=== PATIENT | male | born 1940 | race Caucasian/White ===

== ENCOUNTER 2024-09-11 14:33 | Emergency (ER) | payer MEDICARE, OTHER, SELFPAY ==
[2024-09-11 14:34] VITALS: BMI 33.6
[2024-09-11 14:42] VITALS: BP 162/84; PULSE 73; RESP 18; TEMP 36.6; O2SAT 98
[2024-09-11] MEDS: TETRACAINE PF OP SOL 0.5% 4 ML DRPETTE 1 DROP LEFT EYE (14:56)
[2024-09-11] MEDS: FLUORESCEIN SOD 1 MG STRP LEFT EYE (14:57)
--- NOTE | 2024-09-11 15:30 | EDNOTE_ITS ---
<Statement entered by Nhi Irizarry MD - 09/13/24 12:05> As co-signing physician, I was present and available for consult prn. I concur with the plan and care as documented by the midlevel provider. ED Eye Problem RME/HPI General Chief complaint: Eye Problems Stated complaint: something in eye while sandblasting Time Seen by Provider: 09/11/24 14:46 Arrival date/time: 09/11/24 14:33 84-year-old male presents to the Emergency Department today stating that he got something in his eye while sandblasting patient reports no disturbances in vision Limitations: no limitations Related Data Home Medications ?Medication ?Instructions ?Recorded ?Confirmed diclofenac sodium 50 mg 50 mg PO TIDWM ##0 09/19/14 02/20/22 tablet,delayed release lansoprazole 15 mg capsule,delayed 15 mg PO HS ##0 02/20/22 release (Prevacid) aspirin 81 mg tablet 81 mg PO QDAY 01/09/2102/20 pravastatin 10 mg tablet 10 mg PO QDAY 01/09/2102/20 tamsulosin 0.4 mg capsule 0.8 mg PO QHS 07/19/2102/20 Previous Rx's ?Medication ?Instructions ?Recorded tobramycin 0.3 %-dexamethasone 0.1 2 drp ophthalmic (e ye) QID 7 days 09/11/24 % eye drops,suspension (TobraDex) #10 mL Allergies Allergy/AdvReac Type Severity Reaction Status Date / Time No Known Drug Allergies Allergy Verified 02/20/22 08:05 Review of Systems Review of Systems Systems Reviewed: All systems reviewed, normal except as documented Constitutional Constitutional: Reports system reviewed and no additional complaints, except as documented, Denies fever(s) and Denies headache(s) Eyes Eyes: Reports system reviewed and no additional complaints, except as documented, Denies blurry vision and Reports other (Current abrasion left eye) ENT Ears, Nose, Mouth, and Throat: Reports system reviewed and no additional complaints, except as documented, Denies headache(s), Denies nasal congestion and Denies nasal discharge Cardiovascular Cardiovascular: Reports system reviewed and no additional complaints, except as documented, Denies chest pain and Denies dyspnea Respiratory Respiratory: Reports system reviewed and no additional complaints, except as documented, Denies chest congestion, Denies cough and Denies dyspnea Gastrointestinal Gastrointestinal: Reports system reviewed and no additional complaints, except as documented and Denies abdominal pain Integumentary/Breasts Skin/Breast: Reports system reviewed and no additional complaints, except as documented and Denies rash Neurologic Neurologic: Reports system reviewed and no additional complaints, except as documented, Reports as per HPI and Denies headache(s) Past Medical History Past Medical History NEUROLOGIC: Negative Cerebrovascular Accident, Transient Ischemic Attacks (TIA), Seizures or Migraine CARDIAC: Positive Cardiac Disorders, Hypercholesterolemia and Hypertension; Negative Congestive Heart Failure RESPIRATORY: Negative Chronic Obstructive Pulmonary Disease (COPD) GASTROINTESTINAL: Positive Gastrointestinal Disorders and Gastroesophageal Reflux Disease GENITOURINARY: Positive Genitourinary Disorders (UTI); Negative Renal Disease MUSCULOSKELETAL: Positive Musculoskeletal Disorders and Carpal Tunnel Syndrome (BILAT) ENT: Positive Cataracts (LEFT EYE) ENDOCRINE: Negative Endocrine Disorders, Diabetes Mellitus Type 1, Diabetes Mellitus Type 2, Hypoglycemia, Hyperthyroidism or Hypothyroidism HEMATOLOGIC: Negative Blood Disorders or Anemia OTHER HISTORY: Negative Shingles, Falls, Blood Transfusions, Anesthesia Reactions or Cancer Surgical History SURGICAL: Positive Eye Surgery (LEFT EYE) and Abdominal Surgery; Negative Cardiac Surgery Social History SMOKING STATUS: Never smoker ED Exam General Limitations: Present no limitations General appearance: Present alert and in no apparent distress Head Head exam: Present atraumatic Eye Eye exam: Present PERRL and EOMI; Absent periorbital swelling or periorbital tenderness ENT ENT exam: Present normal exam, normal oropharynx and mucous membranes moist Neck Neck exam: Present normal inspection, full ROM and trachea midline Chest Chest inspection: Present normal inspection and symmetric chest wall rise Respiratory Respiratory exam: Present normal lung sounds bilaterally Cardiovascular Cardiovascular exam: Present regular rate, normal rhythm and normal heart sounds Abdominal Exam Abdominal exam: Present soft and normal bowel sounds Extremities Exam Extremities exam: Present normal inspection and full ROM Back Exam Back exam: Present normal inspection and full ROM Neurological Exam Neurological exam: Present alert, oriented X3 and CN II-XII intact Psychiatric Psychiatric exam: Present normal affect and normal mood Skin Skin exam: Present warm, dry, intact and normal color Course Quality Measures none Orders Category Date Time Status ED Eye Irrigation ONCE Care 09/11/24 14:49 Completed Pavon Lamp to Bedside X1 Care 09/11/24 14:49 Completed Fluorescein Sodium [[id number]] Med 09/11/24 15:00 Discontinued 1 mg LEFT EYE X1 ONE TETRACAINE Op Jenniffer 0.5% [Pontocaine Op Jenniffer 0.5%] Med 09/11/24 14:49 Discontinued 1 drop LEFT EYE X1 ONE Vital Signs Vital signs: Vital Signs Temperature 97.9 F 09/11/24 14:42 Pulse Rate 73 09/11/24 14:42 Respiratory Rate 18 09/11/24 14:42 Blood Pressure 162/84 H 09/11/24 14:42 Pulse Oximetry (%) 98 09/11/24 14:42 Oxygen Delivery Method Room Air 09/11/24 14:42 O2 saturation 98% room air within normal limits Procedures -ED Pavon Lamp Exam Left eye: Flourescein uptake:: Yes Pavon Lamp Findings: Corneal abrasion Eye MDM Narrative MDM Narrative:: 84-year-old male presents to the Emergency Department today stating that he got something in his eye while sandblasting patient reports no disturbances in vision On exam patient appears to have corneal abrasion eye irrigated copiously patient reports he feels better after the irrigation and exam Patient discharged home in no distress to follow-up with Dr. Barnard on Friday for worsening symptoms return immediately Patient data External records reviewed:: [facility] previous records Clinical information provided by:: patient Social determinants that could affect healthcare access:: none Patient has the following chronic illnesses:: None How is presenting disease/condition affected by chronic disease/condition?: no chronic disease Evaluation data The following diagnostics were reviewed and interpreted by me:: other (specify) (N/A) Lab and/or radiology exams considered but not ordered:: Considered not ordered Interpretation Summary: N/A Medications / Prescriptions Medications or Prescriptions considered but not ordered:: Given Medication administrations:: Medication Administration History Discontinued Medications Fluorescein Sodium (Fluorescein Sod 1 Mg Strp) 1 mg LEFT EYE X1 ONE Stop: 09/11/24 15:01 Last Admin: 09/11/24 14:57 Dose: 1 mg Documented By: Tetracaine HCl (Tetracaine Pf Op Jenniffer 0.5% 4 Ml Drpette) 1 drop LEFT EYE X1 ONE Stop: 09/11/24 14:50 Last Admin: 09/11/24 14:56 Dose: 1 drop Documented By: Given Consultations Consultation(s) initiated? (list below): No Diagnosis Eye Problem Differential Diagnosis: corneal abrasion, corneal ulcer and ruptured globe Most likely diagnosis given after review of the tests above:: Corneal abrasion left eye Admission Indicated Admission indicated?: not indicated Admission Request Was there a request for admission?: No Disposition Plan Disposition Plan: Discharge Discharge Attestation Discharge Attestation: The patient and all family members were given an opportunity to ask questions and understood the discharge instructions. Discharge instructions specifically effects, indications for sooner follow up or return to the emergency department, and the expected course of current diagnosis. Patient condition: Stable Discharge Plan Plan Patient Disposition: HOME (Self Care) Disposition Comment: Stable Prescriptions/Referrals Prescriptions/Med Rec: New tobramycin-dexamethasone [TobraDex] 0.3-0.1 % drops,suspension 2 drp ophthalmic (eye) QID 7 Days Qty: 10 0RF No Action tamsulosin 0.4 mg capsule 0.8 mg PO QHS lansoprazole [Prevacid] 15 MG capsule,delayed release(DR/EC) 15 mg PO HS Qty: 0 Patient Comments: TO SUPPRESS GASTRIC ACID SECRETION diclofenac sodium 50 MG tablet,delayed release (DR/EC) 50 mg PO TIDWM Qty: 0 pravastatin 10 mg Tablet 10 mg PO QDAY aspirin 81 mg Tablet 81 mg PO QDAY Referrals: Cory Martinez MD [Primary Care Provider] - In 1 week Problem List Clinical Impression: Abrasion, corneal Patient/Caregiver Discharge Instructions Education Materials: ED Corneal Abrasion Additional Instructions: Please follow up with Dr. Barnard on Friday for worsening symptoms or concerns return to the ER immediately Print Language: Japanese Stand Alone Forms: Batsheva Award Info., Work/School Release, Patient Portal Info Letter PA/TECH[employer] SAL[employer]IST Supervising Physician PA/THUY Supervising Physician: Dr. IRIZARRY
== END 2024-09-11 15:40 | disposition home or self-care (01) ==
PROVIDERS: Emergency Provider Emergency Medicine; PCP Family Medicine
DX: S05.02XA Injury of conjunctiva and corneal abrasion without foreign body, left eye, initial encounter (principal); X58.XXXA Exposure to other specified factors, initial encounter
CPT/HCPCS: 99283

== ENCOUNTER 2024-09-13 18:07 | Emergency (ER) | payer MEDICARE, OTHER, SELFPAY ==
[2024-09-13 18:08] VITALS: BMI 33.6
[2024-09-13 19:06] VITALS: BP 168/84; PULSE 106; RESP 19; TEMP 37.1; O2SAT 96
--- NOTE | 2024-09-13 19:48 | PD.EDEYE ---
ED Eye Problem RME/HPI General Chief complaint: Eye Problems Stated complaint: SOMETHING IN LEFT EYE SINCE FRIDAY Time Seen by Provider: 09/13/24 18:51 Arrival date/time: 09/13/24 18:07 84-year-old male who was seen 1 week ago for foreign body in left eye. Patient states that he was treated and released he was relieved of the sensation for several hours but then it returned patient states that he has been using saline Ibrance had not used the medication as he was unaware that a prescription for antibiotics was sent to his pharmacy. Patient returns today stating that there is still sand in his eye Limitations: no limitations Related Data Home Medications ?Medication ?Instructions ?Recorded ?Confirmed diclofenac sodium 50 mg 50 mg PO TIDWM ##0 09/19/14 02/20/22 tablet,delayed release lansoprazole 15 mg capsule,delayed 15 mg PO HS ##0 09/19/14 02/20/22 release (Prevacid) aspirin 81 mg tablet 81 mg PO QDAY 01/09/21 02/20/22 pravastatin 10 mg tablet 10 mg PO QDAY 01/09/21 02/20/22 tamsulosin 0.4 mg capsule 0.8 mg PO QHS 07/19/21 02/20/22 Previous Rx's ?Medication ?Instructions ?Recorded tobramycin 0.3 %-dexamethasone 0.1 2 drp ophthalmic (eye) QID 7 days 09/11/ % eye drops,suspension (TobraDex) #10 mL Allergies Allergy/AdvReac Type Severity Reaction Status Date / Time No Known Drug Allergies Allergy Verified 09/13/24 18:10 Review of Systems Constitutional Constitutional: Denies chills, Denies fever(s) and Denies headache(s) Eyes Eyes: Denies blurry vision, Reports irritation, Denies loss of vision and Reports eye pain Comments: Foreign body in right eye ENT Ears, Nose, Mouth, and Throat: Denies headache(s) Integumentary/Breasts Skin/Breast: Denies erythema and Denies rash Neurologic Neurologic: Denies headache(s) and Denies loss of vision ED Exam General Limitations: Present no limitations General appearance: Present alert and in no apparent distress Eye Eye exam: Present PERRL, EOMI and other (Sclera conjunctiva are erythematous no purulent discharge noted no foreign bodies noted) Neurological Exam Neurological exam: Present alert, oriented X3 and CN II-XII intact Psychiatric Psychiatric exam: Present normal affect and normal mood Skin Skin exam: Present warm, dry, intact and normal color Course Quality Measures none Orders Category Date Time Status ED Eye Irrigation ONCE Care 09/13/24 19:44 Active Pavon Lamp to Bedside X1 Care 09/13/24 19:44 Active Proparacaine Op Jenniffer 0.5% [Alcaine Op Jenniffer 0.5%] Med 09/13/24 19:44 Discontinued See Dose Instructions RIGHT EYE X1 ONE Vital Signs Vital signs: Vital Signs Temperature 98.7 F 09/13/24 19:06 Pulse Rate 106 H 09/13/24 19:06 Respiratory Rate 19 09/13/24 19:06 Blood Pressure 168/84 H 09/13/24 19:06 Pulse Oximetry (%) 96 09/13/24 19:06 Oxygen Delivery Method Room Air 09/13/24 19:06 Procedures -ED Pavon Lamp Exam Left eye: Flourescein uptake:: Yes Pavon Lamp Findings: Corneal abrasion Eye Patient data External records reviewed:: None Clinical information provided by:: patient Social determinants that could affect healthcare access:: none Patient has the following chronic illnesses:: none How is presenting disease/condition affected by chronic disease/condition?: no chronic disease Evaluation data The following diagnostics were reviewed and interpreted by me:: other (specify) (none) Lab and/or radiology exams considered but not ordered:: none Interpretation Summary: n/a Medications / Prescriptions Medications or Prescriptions considered but not ordered:: none Medication administrations:: Medication Administration History Discontinued Medications Proparacaine HCl (Proparacaine Op Jenniffer 0.5% 15 Ml Btl) 0 drop RIGHT EYE X1 ONE Stop: 09/13/24 19:45 Last Admin: 09/13/24 20:24 Dose: 2 drop Documented By: KF as above Consultations Consultation(s) initiated? (list below): No Diagnosis Eye Problem Differential Diagnosis: corneal abrasion, conjunctivitis and corneal ulcer Most likely diagnosis given after review of the tests above:: Left corneal abrasion Admission Indicated Admission indicated?: not indicated Admission Request Was there a request for admission?: No Disposition Plan Disposition Plan: Discharge Discharge Attestation Discharge Attestation: The patient and all family members were given an opportunity to ask questions and understood the discharge instructions. Discharge instructions specifically effects, indications for sooner follow up or return to the emergency department, and the expected course of current diagnosis. Patient condition: Stable Discharge Plan Plan Patient Disposition: HOME (Self Care) Prescriptions/Referrals Prescriptions/Med Rec: No Action tamsulosin 0.4 mg capsule 0.8 mg PO QHS lansoprazole [Prevacid] 15 MG capsule,delayed release(DR/EC) 15 mg PO HS Qty: 0 Patient Comments: TO SUPPRESS GASTRIC ACID SECRETION diclofenac sodium 50 MG tablet,delayed release (DR/EC) 50 mg PO TIDWM Qty: 0 pravastatin 10 mg Tablet 10 mg PO QDAY aspirin 81 mg Tablet 81 mg PO QDAY tobramycin-dexamethasone [TobraDex] 0.3-0.1 % drops,suspension 2 drp ophthalmic (eye) QID 7 Days Qty: 10 0RF Problem List Clinical Impression: Abrasion, corneal Patient/Caregiver Discharge Instructions Discharge Activity: activity as tolerated Education Materials: ED Corneal Abrasion Additional Instructions: Take medication as directed during hours you are awake. Wear UV protection when outside during daylight hours you may use normal saline eye rinse solution for comfort do not use the saline directly after applying antibiotic drops as you may wash the antibiotics out weight approximately 20-30 minutes,? follow-up with your PCP in 48-72 hours Print Language: Korean Stand Alone Forms: Batsheva Award Info., Patient Portal Info Letter
[2024-09-13] MEDS: PROPARACAINE OP SOL 0.5% 15 ML BTL RIGHT EYE (20:24)
== END 2024-09-13 21:41 | disposition home or self-care (01) ==
LOC: SERX 21:49
PROVIDERS: Emergency Provider Emergency Medicine; PCP Family Medicine
DX: S05.02XA Injury of conjunctiva and corneal abrasion without foreign body, left eye, initial encounter (principal); X58.XXXA Exposure to other specified factors, initial encounter
CPT/HCPCS: 99283